=== PATIENT | female | born 1965 | race Caucasian/White ===

== ENCOUNTER → 2021-07-20 10:01 | Outpatient (CLI) | payer OTHER, SELFPAY ==
[2021-07-22 14:14] LABS: Free T4, Direct Thyroxine 1.04 ng/dL (0.78-2.19)
[2021-07-22 14:28] LABS: Thyroid Stimulating Hormone 1.57 uIU/mL (0.47-4.68)
== END ==
PROVIDERS: PCP Family Medicine; Visit Provider Obstetrics & Gynecology
DX: N95.1 Menopausal and female climacteric states (principal)
CPT/HCPCS: 82306; 84439; 84443

== ENCOUNTER → 2021-09-07 09:23 | Outpatient (CLI) | payer OTHER, SELFPAY ==
[2021-09-07 21:15] LABS: COVID19 - ORCAS (NP or Nasal) Negative (Negative)
== END ==
PROVIDERS: PCP Family Medicine; Visit Provider Physician Assistant Medical
DX: Z20.822 Contact with and (suspected) exposure to COVID-19 (principal)
CPT/HCPCS: U0003

== ENCOUNTER 2023-03-30 18:49 | Emergency (ER) | payer OTHER, SELFPAY ==
[2023-03-30] VITALS (12 sets, daily range): BP systolic 160–202; BP diastolic 76–100; PULSE 71–94; RESP 17–27; TEMP 36.7; O2SAT 96–100; BMI 29.8
--- NOTE | 2023-03-30 19:08 | DI.RAD.S_ITS ---
PROCEDURE: XR CHEST 1V INDICATIONS: chest pain TECHNIQUE: One view of the chest was acquired. COMPARISON: None. FINDINGS: Surgical changes and devices: None. Lungs and pleura: Lungs are clear. No pleural effusions or pneumothorax. Mediastinum: Mediastinal contours appear normal. Heart size is normal. Bones and chest wall: No suspicious bony lesions. Overlying soft tissues appear unremarkable. IMPRESSION: Portable chest within normal limits. Dictated by: Scottie Richardson M.D. on 03/30/2023 at 19:17 Approved by: Scottie Richardson M.D. on 03/30/2023 at 19:18
--- NOTE | 2023-03-30 19:09 | DI.US.S_ITS ---
PROCEDURE: US PELVIC COMPLETE INDICATIONS: SEVERE LEFT PELVIC PAIN. HISTORY OF OVARIAN CYSTS TECHNIQUE: Real-time scanning was performed of the pelvic organs, with image documentation. Additional endovaginal scanning was necessary due to incomplete visualization of the adnexal and endometrial structures by transabdominal scanning. COMPARISON: [facility], CR, XR CHEST 1V, 03/30/2023, 19:39. FINDINGS: Overall scan quality is limited by patient pain and inability to tolerate the examination. Uterus: Removed. Apparent calcification can be seen involving the vaginal cuff. Ovaries: The right ovary is not well seen. The left ovary measures 2.6 x 1.2 x 1.5 cm, with a volume of 2.3 cc. Normal appearing venous and arterial waveforms are confirmed to the left ovary. Other: No pathologic free abdominal or pelvic fluid. IMPRESSION: Negative for left ovarian torsion. Status post hysterectomy. Right ovary not well seen. We strive to produce accurate, complete, and clear reports of imaging services. To assist us in improving patient care, this report was composed using standard report templates and voice recognition software. Therefore, it may contain abnormal punctuation, insertions and/or omissions. Occasional wrong-word or sound-alike substitutions may occur. Though we review the report and make efforts to correct it, we do recommend that the report be read carefully in proper context to recognize any text inaccuracies. Dictated by: Scottie Richardson M.D. on 03/30/2023 at 21:03 Approved by: Scottie Richardson M.D. on 03/30/2023 at 21:04
[2023-03-30 19:54] LABS: Add Manual Diff / Slide Review NO; Basophils Absolute Auto 100 /uL (0-100); Basophils Percent Auto 1.1 % (0-2); Eosinophils Absolute Auto 200 /uL (0-450); Eosinophils Percent Auto 1.5 % (2-4); Hematocrit 36.1 % (36-46); Hemoglobin 12.4 g/dL (12.0-16.0); Lymphocytes Absolute Auto 3100 /uL (1100-4500); Lymphocytes Percent Auto 27.5 % (25-40); Mean Corpuscular HGB Conc 34.3 % (30-36); Mean Corpuscular Hemoglobin 31.3 PG (26-34); Mean Corpuscular Volume 91.3 fL (80-100); Monocytes Absolute Auto 600 /uL (0-900); Neutrophils Absolute Auto 7300 /uL (1500-7000); Neutrophils Percent Auto 64.9 % (50-75); Platelet Count 329 X10^3/uL (150-400); Prothrombin Time 11.8 SECONDS (10.1-12.7); Red Blood Cell Count 3.96 X10^6/uL (4.0-5.2); Red Cell Distribution Width 13.5 % (11.6-14.8); White Blood Cell Count 11.2 X10^3/uL (4.5-11.0)
[2023-03-30 19:57] LABS: PTT Partial Thromboplastin Tim 30 SECONDS (26-36)
[2023-03-30 20:00] LABS: Alanine Aminotransferase 79 IU/L (<35); Albumin 4.7 g/dL (3.5-5.0); Albumin Globulin Ratio 1.2 (1.0-2.8); Alkaline Phosphatase 115 U/L (38-126); Aspartate Aminotransferase 49 IU/L (14-36); BUN Creatinine Ratio 17.4 (6-22); Bilirubin Total 0.7 mg/dL (0.2-1.3); Blood Urea Nitrogen 15 mg/dL (7-17); Calcium 9.5 mg/dL (8.4-10.2); Carbon Dioxide 24 mmol/L (22-32); Chloride 100 mmol/L (98-107); Creatine Kinase 61 U/L (30-135); Estimated Glomerular Filt Rate > 60 mL/min (>60); Globulin 3.8 g/dL (1.7-4.1); Glucose 99 mg/dL (70-100); HEMOLYSIS < 15 (0-50); Lipase 97 U/L (23-300); Magnesium 2.1 mg/dL (1.6-2.3); Sodium 136 mmol/L (137-145); Total Protein 8.5 g/dL (6.3-8.2)
[2023-03-30 20:11] LABS: Troponin I < 0.012 ng/mL (0.01-0.034)
[2023-03-30] MEDS: ASPIRIN 81 MG CHEW TAB 324 MG PO (22:05)
--- NOTE | 2023-03-30 22:49 | PC.NURSE ---
Pt reports she used to take losartan 50mg daily, but does not anymore.
--- NOTE | 2023-03-30 23:16 | DI.CT.S_ITS ---
PROCEDURE: CT ABDOMEN PELVIS W CON INDICATIONS: llq pain TECHNIQUE: After the administration of IV contrast, axial sections were acquired from the lung bases to the pubic symphysis. Coronal and sagittal reformats were performed. For radiation dose reduction, the following was used: automated exposure control, adjustment of mA and/or kV according to patient size. COMPARISON: [facility], CR, XR CHEST 1V, 03/30/2023, 19:39. [facility], US, US PELVIC COMPLETE, 03/30/2023, 20:49. FINDINGS: Image quality: Excellent. Lung bases: Unremarkable. Heart: No significant findings. ABDOMEN: Liver: Diffuse fatty liver infiltration is noted. Gallbladder: Unremarkable. Biliary ducts: Unremarkable. Pancreas: Unremarkable. Spleen: Unremarkable. Incidental note is made of an accessory splenule along the anterior inferior of the primary spleen. Adrenal Glands: Unremarkable. Kidneys and Ureters: An abnormally prominent left renal pelvis can be seen, with an abrupt transition to a normal caliber ureter. There is a delayed nephrogram seen on the left. There is a nonobstructing left-sided kidney stone seen, as on series 3, image 41 measuring 5 mm and 800 Hounsfield units. Numerous simple appearing left-sided kidney cysts are seen. Stomach and Bowel: Within the proximal sigmoid colon, there is focal wall thickening with surrounding inflammatory change. Diverticula formation can be seen within this region. The more proximal colon demonstrates diverticular formation, yet without focal inflammatory change. No dilated loops of small bowel are seen. A normal appendix is incidentally noted. No significant gastric abnormality is seen. Peritoneum: No peritoneal abscess is seen. No abnormal intraperitoneal fluid. No free air. Ventral Wall: No hernia. Abdominal Nodes: No retroperitoneal or mesenteric adenopathy by size criteria. Vessels: Aorta and inferior vena cava are normal in size. PELVIS: Pelvic Organs: This patient is status post hysterectomy. No adnexal masses are seen. Bladder: Unremarkable. Pelvic Nodes: No enlarged lymph nodes. Miscellaneous: No inguinal hernias are seen. Bones: Focal L5-S1 degenerative change is seen. Milder degenerative changes are seen elsewhere. IMPRESSION: Sigmoid diverticulitis, without findings of perforation or abscess. When clinically appropriate (following adequate treatment of the patient's current clinical episode) a colonoscopy is recommended for further evaluation for a potential underlying mass (if not already recently done). Apparent left UPJ obstruction. A mild associated delayed nephrogram can be seen. A nonobstructing left-sided kidney stone is seen. Additional findings: Fatty liver infiltration Accessory splenule Simple left renal cysts Normal appendix Hysterectomy Focal L5-S1 degenerative change Dictated by: Scottie Richardson M.D. on 03/30/2023 at 23:07 Approved by: Scottie Richardson M.D. on 03/30/2023 at 23:13
--- NOTE | 2023-03-30 23:19 | ED_ITS ---
HPI - Abdominal Pain General Chief Complaint: Abdominal Pain Stated Complaint: LLQ abd pain, fever, headache, high BP Time Seen by Provider: 03/30/23 22:57 Source: patient Mode of arrival: Ambulatory History of Present Illness HPI narrative: Patient is a 57-year-old healthy female who presents today for left lower quadrant pain. She reports that she had a hysterectomy back in the but has had some left ovarian pain occasionally she says that she has not had in about a year but she started having pain yesterday. She says typically the pain gets better within a day or so but the pain has gotten quite unbearable. She is no changes in bowel habits no nausea or vomiting no fevers or chills or painful frequent urination. This feels very atypical for her ovarian pain. Related Data Home Medications Medication Instructions Recorded Confirmed albuterol sulfate 90 mcg/actuation 2 puff inhalation Q4-6H PRN 05/02/21 07/20/21 aerosol inhaler fluticasone 250 mcg-salmeterol 50 1 inh inhalation BID 05/02/21 07/20/21 mcg/dose blistr powdr for inhalation Previous Rx's Medication Instructions Recorded losartan 50 mg tablet 50 mg PO DAILY #90 tabs 05/03/21 estradiol 0.05 mg/24 hr semiweekly 1 patch transdermal 2XW #8 ea 07/20/21 transdermal patch (Makeda) ciprofloxacin HCl 500 mg tablet 500 mg PO BID #14 tabs 03/31/23 (Cipro) metronidazole 500 mg tablet 500 mg PO Q8H 7 days #21 tabs 03/31/23 Allergies Allergy/AdvReac Type Severity Reaction Status Date / Time acetaminophen [From Percocet] Allergy Severe OXYCODONE-A Verified 03/30/23 19:02 CETAMINOPHE N/TRAMADOL oxycodone [From Percocet] Allergy Severe OXYCODONE-A Verified 03/30/23 19:02 CETAMINOPHE N/TRAMADOL Review of Systems Review of Systems ROS Unobtainable: All systems reviewed & are unremarkable except as noted in HPI and below Patient History Medical History Abnormal Pap smear of cervix (~1986) Allergies (~1993) Anemia (~1976) Asthma (~1993) Fibroids (~1993) Gout (~2003) Heavy menstrual period (~1983) History of 2019 novel coronavirus disease (COVID-19) Mumps (~1968) Ovarian cyst (~1993) Painful menstrual periods (~1983) Symptomatic menopausal or female climacteric states Surgical History Anesthesia Breast tumor (~2003) History of hysterectomy (~1994) Family History Father Cancer Grandmother Cancer Grandfather Cancer Grandmother Alzheimer's disease Social History Smoking Status: Never smoker Smoking Status: Never smoker alcohol intake frequency: 0-2 drinks per day Alcohol type: wine Substance Use Type: does not use Exam Initial Vital Signs Initial Vital Signs: Vital Signs Temperature 98.1 F 03/30/23 18:58 Pulse Rate 94 H 03/30/23 18:58 Respiratory Rate 18 03/30/23 18:58 Blood Pressure 199/100 H 03/30/23 18:58 Pulse Oximetry 100 03/30/23 18:58 Oxygen Delivery Method Room Air 03/30/23 18:58 GENERAL: Alert pleasant 57-year-old female and in no acute distress. HEENT: Head atraumatic,EOMI, pupils reactive, face symmetric, moist mucous membranes CARDIOVASCULAR: Regular rate and rhythm without murmurs, rubs or gallops. RESPIRATORY: Breath sounds equal bilaterally, no wheezes rales or rhonchi. ABDOMEN: Soft, tenderness left lower quadrant no guarding no rebound no upper abdominal pain EXTREMITIES: Normal range of motion, no clubbing or edema. Neurovascularly intact NEUROLOGICAL: Alert and oriented x4. SKIN: Warm, dry, no laceration, no petechiae, no rashes or lesions. Course Orders Ordered: ED Orders 03/30/23 19:08 XR chest 1V Stat EKG-12 Lead Stat 03/30/23 19:09 US pelvic complete Stat 03/30/23 19:30 Complete Blood Count AUTO DIFF Stat Comprehensive Metabolic Panel Stat Lipase Stat Magnesium Stat PTT Partial Thromboplastin Santos Stat Prothrombin Time INR Stat Troponin & CK Cardiac Panel Stat 03/30/23 23:16 CT abdomen pelvis w con Stat Discontinued Medications Aspirin (Aspirin 81 Mg Chew Tab) 324 mg PO NOW ONE Stop: 03/30/23 19:08 Last Admin: 03/30/23 22:05 Dose: 324 mg Documented By: AGNES Ciprofloxacin (Ciprofloxacin 250 Mg Tablet) 500 mg PO NOW ONE Stop: 03/31/23 00:49 Last Admin: 03/31/23 01:02 Dose: 500 mg Documented By: KOMAL Ketorolac Tromethamine (Ketorolac 30 Mg/Ml Vial) 15 mg IV NOW ONE Stop: 03/30/23 23:17 Last Admin: 03/30/23 23:48 Dose: 15 mg Documented By: AGNES Metronidazole (Metronidazole 500 Mg Tablet) 500 mg PO NOW ONE Stop: 03/31/23 00:49 Last Admin: 03/31/23 01:02 Dose: 500 mg Documented By: KOMAL Vital Signs Vital signs: Vital Signs - 8 hr 03/30/23 18:58 03/30/23 19:35 03/30/23 21:18 Temperature 98.1 F Pulse Rate 94 H Respiratory Rate 18 Blood Pressure 199/100 H 190/89 H 193/100 H Pulse Oximetry 100 Oxygen Delivery Method Room Air 03/30/23 21:18 03/30/23 21:30 03/30/23 21:59 Temperature Pulse Rate 89 86 Respiratory Rate Blood Pressure 202/93 H Pulse Oximetry 100 98 Oxygen Delivery Method 03/30/23 21:59 03/30/23 22:00 03/30/23 22:30 Temperature Pulse Rate 91 H 85 86 Respiratory Rate 19 Blood Pressure Pulse Oximetry 98 98 97 Oxygen Delivery Method 03/30/23 22:31 03/30/23 22:31 03/30/23 22:48 Temperature Pulse Rate 92 H Respiratory Rate 23 Blood Pressure 186/81 H 182/87 H Pulse Oximetry 97 Oxygen Delivery Method Room Air 03/30/23 22:48 03/30/23 23:00 03/30/23 23:00 Temperature Pulse Rate 89 85 Respiratory Rate 23 17 Blood Pressure 162/78 H Pulse Oximetry 97 96 Oxygen Delivery Method 03/30/23 23:43 03/30/23 23:48 03/30/23 23:48 Temperature Pulse Rate 85 71 Respiratory Rate 27 H 18 Blood Pressure 160/76 H Pulse Oximetry 96 97 Oxygen Delivery Method 03/31/23 00:00 03/31/23 00:00 03/31/23 00:30 Temperature Pulse Rate 76 Respiratory Rate 17 Blood Pressure 151/65 H 141/66 H Pulse Oximetry 96 Oxygen Delivery Method 03/31/23 00:30 03/31/23 00:59 Temperature Pulse Rate 81 88 Respiratory Rate 17 18 Blood Pressure 133/60 Pulse Oximetry 95 94 Oxygen Delivery Method Room Air MDM - Abdominal Pain Lab Data 03/30/23 19:30 03/30/23 19:30 Labs: Lab Results 03/30/23 03/30/23 03/30/23 Range/Units 19:30 19:30 19:30 WBC 11.2 H (4.5-11.0) X10^3/uL RBC 3.96 L (4.0-5.2) X10^6/uL Hgb 12.4 (12.0-16.0) g/dL Hct 36.1 (36-46) % MCV 91.3 (80-100) fL MCH 31.3 (26-34) PG MCHC 34.3 (30-36) % RDW 13.5 (11.6-14.8) % Plt Count 329 (150-400) X10^3/uL Neut % (Auto) 64.9 (50-75) % Lymph % (Auto) 27.5 (25-40) % Norman % (Auto) 5.0 (3-14) % Eos % (Auto) 1.5 L (2-4) % Baso % (Auto) 1.1 (0-2) % Neut # (Auto) 7300 H (2919-8611) /uL Lymph # (Auto) 3100 (7018-7492) /uL Norman # (Auto) 600 (0-900) /uL Eos # (Auto) 200 (0-450) /uL Baso # (Auto) 100 (0-100) /uL PT 11.8 (10.1-12.7) SECONDS INR 1.0 (0.9-1.3) APTT 30 (26-36) SECONDS Sodium 136 L (137-145) mmol/L Potassium 4.0 (3.4-5.1) mmol/L Chloride 100 (98-107) mmol/L Carbon Dioxide 24 (22-32) mmol/L BUN 15 (7-17) mg/dL Creatinine 0.86 (0.52-1.04) mg/dL Estimated GFR > 60 (>60) mL/min BUN/Creatinine Ratio 17.4 (6-22) Glucose 99 (70-100) mg/dL Calcium 9.5 (8.4-10.2) mg/dL Magnesium 2.1 (1.6-2.3) mg/dL Total Bilirubin 0.7 (0.2-1.3) mg/dL AST 49 H (14-36) IU/L ALT 79 H (<35) IU/L Alkaline Phosphatase 115 (38-126) U/L Total Creatine Kinase 61 (30-135) U/L CK-MB (CK-2) TNP CK-MB (CK-2) Rel Index TNP Troponin I < 0.012 (0.01-0.034) ng/mL Total Protein 8.5 H (6.3-8.2) g/dL Albumin 4.7 (3.5-5.0) g/dL Globulin 3.8 (1.7-4.1) g/dL Albumin/Globulin Ratio 1.2 (1.0-2.8) Lipase 97 (23-300) U/L Point of care testing: Urine Dip Bedside Urine Glucose Negative Bedside Urine Bilirubin - Negative Bedside Urine Ketone - Negative Urine Specific [employer] 1.025 Bedside Urine Occult Blood +/- Bedside Urine pH 6 Bedside Urine Protein - Negative Bedside Urine Urobilinogen - Negative Bedside Urine Nitrite - Negative Bedside Urine Leukocytes - Negative Esterase Imaging Data Chest x-ray: Radiologist's Impression: PROCEDURE:? XR CHEST 1V ? INDICATIONS:? chest pain ? TECHNIQUE:? One view of the chest was acquired.? ? COMPARISON:? None. ? FINDINGS:? ? Surgical changes and devices:? None.? ? Lungs and pleura:? Lungs are clear.? No pleural effusions or pneumothorax.? ? Mediastinum:? Mediastinal contours appear normal.? Heart size is normal.? ? Bones and chest wall:? No suspicious bony lesions.? Overlying soft tissues appear unremarkable.? IMPRESSION:? ? Portable chest within normal limits. ? ? ? Dictated by: Scottie Richardson M.D. on 03/30/2023 at 19:17? 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 US PELVIC COMPLETE ? INDICATIONS:? SEVERE LEFT PELVIC PAIN. HISTORY OF OVARIAN CYSTS ? TECHNIQUE:? Real-time scanning was performed of the pelvic organs, with image documentation.? Additional endovaginal scanning was necessary due to incomplete visualization of the adnexal and endometrial structures by transabdominal scanning.? ? COMPARISON:? [facility], CR, XR CHEST 1V, 03/30/2023, 19:39. ? FINDINGS:? Overall scan quality is limited by patient pain and inability to tolerate the examination. ?? Uterus:? Removed.? Apparent calcification can be seen involving the vaginal cuff. ? Ovaries:? The right ovary is not well seen. ? The left ovary measures 2.6 x 1.2 x 1.5 cm, with a volume of 2.3 cc. Normal appearing venous and arterial waveforms are confirmed to the left ovary. ? ? Other:? No pathologic free abdominal or pelvic fluid. ? ? IMPRESSION:? Negative for left ovarian torsion. ? Status post hysterectomy. ? Right ovary not well seen. ? We strive to produce accurate, complete, and clear reports of imaging services. To assist us in improving patient care, this report was composed using standard report templates and voice recognition software. Therefore, it may contain abnormal punctuation, insertions and/or omissions. Occasional wrong-word or sound-alike substitutions may occur. Though we review the report and make efforts to correct it, we do recommend that the report be read carefully in proper context to recognize any text inaccuracies. ? ? Dictated by: Scottie Richardson M.D. on 03/30/2023 at 21:03? CT scan - abdomen/pelvis: Radiologist's Impression: PROCEDURE:? CT ABDOMEN PELVIS W CON ? INDICATIONS:? llq pain ? TECHNIQUE:? After the administration of IV contrast, axial sections were acquired from the lung bases to the pubic symphysis.? Coronal and sagittal reformats were performed.? For radiation dose reduction, the following was used:? automated exposure control, adjustment of mA and/or kV according to patient size. ? COMPARISON:? [facility], CR, XR CHEST 1V, 03/30/2023, 19:39.? [facility], , US PELVIC COMPLETE, 03/30/2023, 20:49. ? FINDINGS:? Image quality:? Excellent.? ? Lung bases:? Unremarkable.? ? Heart:? No significant findings. ? ? ABDOMEN: Liver:? Diffuse fatty liver infiltration is noted.? Gallbladder:? Unremarkable.? ? Biliary ducts:? Unremarkable.? ? Pancreas:? Unremarkable.? ? Spleen:? Unremarkable.? Incidental note is made of an accessory splenule along the anterior inferior of the primary spleen.? Adrenal Glands:? Unremarkable.? ? Kidneys and Ureters:? An abnormally prominent left renal pelvis can be seen, with an abrupt transition to a normal caliber ureter.? There is a delayed nephrogram seen on the left. There is a nonobstructing left-sided kidney stone seen, as on series 3, image 41 measuring 5 mm and 800 Hounsfield units. Numerous simple appearing left-sided kidney cysts are seen. ? Stomach and Bowel:? Within the proximal sigmoid colon, there is focal wall thickening with surrounding inflammatory change.? Diverticula formation can be seen within this region. The more proximal colon demonstrates diverticular formation, yet without focal inflammatory change. No dilated loops of small bowel are seen. A normal appendix is incidentally noted.? No significant gastric abnormality is seen. Peritoneum:? No peritoneal abscess is seen.? No abnormal intraperitoneal fluid.? No free air.? ? Ventral Wall: ? No hernia.? Abdominal Nodes:? No retroperitoneal or mesenteric adenopathy by size criteria.? Vessels:? Aorta and inferior vena cava are normal in size.? ? PELVIS: Pelvic Organs:? This patient is status post hysterectomy. No adnexal masses are seen.? Bladder:? Unremarkable.? ? Pelvic Nodes: No enlarged lymph nodes.? Miscellaneous: No inguinal hernias are seen. ? ? ? Bones:? Focal L5-S1 degenerative change is seen.? Milder degenerative changes are seen elsewhere.? ? ? IMPRESSION:? ? Sigmoid diverticulitis, without findings of perforation or abscess. ? When clinically appropriate (following adequate treatment of the patient's current clinical episode) a colonoscopy is recommended for further evaluation for a potential underlying mass (if not already recently done). ? Apparent left UPJ obstruction.? A mild associated delayed nephrogram can be seen. ? A nonobstructing left-sided kidney stone is seen. ? Additional findings:? Fatty liver infiltration Accessory splenule Simple left renal cysts Normal appendix Hysterectomy Focal L5-S1 degenerative change ? ? ? Dictated by: Scottie Richardson M.D. on 03/30/2023 at 23:07 ?? ECG Data Interpretation: Normal sinus rhythm rate 92 FL interval 150 QRS 4 QTC 460 T-wave inversion noted in lead 3 only LVH noted MDM Narrative Medical decision making narrative: Patient is a 57-year-old female presenting today with left lower quadrant pain. She does have a history of left ovarian pain but this feels different. Ultrasound is negative for cyst or torsion. Blood work is not show any abnormality or end-organ damage. She is noted to be extremely hypertensive blood pressure 199/100 however improve to 133/60 during her stay without any intervention except for pain control. She was given 1 dose of Toradol. Due to ongoing pain and abnormal pain CT was done which does confirm sigmoid diverticulitis without complication. She is given Cipro and Flagyl in the emergency department. No evidence of sepsis. She has mild leukocytosis of 11.2 but no other clinically significant lab abnormalities. Discharge Plan Departure Patient Disposition: Home Clinical Impression: Diverticulitis Instructions: DI for Diverticulitis Activity Restrictions/Additional Instructions: *You have been diagnosed with diverticulitis *What to do: At this time you may find that you need a low-fiber diet until your intestine heels and then resume a high-fiber diet. *Continue to take medications as directed Cipro 500 mg twice a day for 7 days Flagyl 500 mg 3 times a day for 7 days Motrin 600 mg every 6 hours if needed for [id number] pain Tylenol 1000 mg every hours if needed for [id number] pain *Follow up with your primary care provider in 2-3 days or call [phone] *Return to ER if you should have increasing pain persistent vomiting fever bloody stool or any new, worsening or concerning symptoms Prescriptions: New metronidazole 500 mg tablet 500 mg PO Q8H 7 Days Qty: 21 0RF ciprofloxacin HCl [Cipro] 500 mg tablet 500 mg PO BID Qty: 14 0RF No Action estradiol [Makeda] 0.05 mg/24 hr patch semiweekly 1 patch transdermal 2XW Qty: 8 11RF Rx Instructions: apply 1 patch for 3 days alternating with 1 patch for 4 days each week for 3 wks per 4-wk cycle losartan 50 mg tablet 50 mg PO DAILY Qty: 90 3RF fluticasone propion-salmeterol 250-50 mcg/dose blister with device 1 inh inhalation BID albuterol sulfate 90 mcg/actuation HFA aerosol inhaler 2 puff inhalation Q4-6H PRN Referrals: Theodore Solis MD [Primary Care Provider] - Stand Alone Forms: Patient Portal/API
[2023-03-30] MEDS: KETOROLAC 30 MG/ML VIAL 15 MG IV (23:48)
[2023-03-31] VITALS: BP 151/65; PULSE 76; RESP 17; O2SAT 96
[2023-03-31 00:30] VITALS: BP 141/66; PULSE 81; RESP 17; O2SAT 95
[2023-03-31 00:59] VITALS: BP 133/60; PULSE 88; RESP 18; O2SAT 94
[2023-03-31] MEDS: metroNIDAZOLE 500 MG TABLET PO (01:02)
[2023-03-31] MEDS: CIPROFLOXACIN 250 MG TABLET 500 MG PO (01:02)
== END 2023-03-31 01:11 | disposition home or self-care (01) ==
PROVIDERS: Emergency Provider Emergency Medicine; PCP Family Medicine
DX: K57.92 Diverticulitis of intestine, part unspecified, without perforation or abscess without bleeding (principal); R07.9 Chest pain, unspecified
CPT/HCPCS: 36415; 71045; 74177; 76830; 76856; 80053; 81003; 82550; 83690; 83735; 84484; 85025; 85610; 85730; 93005; 93975; 96374; 99284; J1885; Q9967

== ENCOUNTER → 2023-04-12 12:19 | Outpatient (CLI) | payer OTHER, SELFPAY ==
[2023-05-03 09:44] LABS: Miscellaneous to LabCorp SEE COMMENTS
== END ==
PROVIDERS: PCP Physician Assistant; Visit Provider Nurse Practitioner Adult Health
DX: N89.8 Other specified noninflammatory disorders of vagina (principal)
CPT/HCPCS: 87798

== ENCOUNTER 2023-06-01 09:47 | Emergency (ER) | payer OTHER, SELFPAY ==
[2023-06-01 09:54] VITALS: BP 179/97; PULSE 98; RESP 16; TEMP 36.3; O2SAT 99; BMI 27.4
--- NOTE | 2023-06-01 09:57 | ED_ITS ---
HPI - General Adult General Chief complaint: Urogenital-Female Stated complaint: think UTI or Kidney infection Time Seen by Provider: 06/01/23 09:56 History of Present Illness HPI narrative: 57-year-old female nonsmoke presents with a chief complaint of left flank pain and some burning with urination along with nausea and vomiting. she states that she had a relatively sudden onset left flank and lower quadrant pain that started this morning. She states it radiated into her groin and seemed to intensify without obvious provocation or palliation. She is not dizzy nor weak or lightheaded. She had nausea and vomiting when the pain was severe. She denies any change in bowel habits. Related Data Home Medications Medication Instructions Recorded Confirmed albuterol sulfate 90 mcg/actuation 2 puff inhalation Q4-6H PRN 05/02/21 05/21/23 aerosol inhaler fluticasone 250 mcg-salmeterol 50 1 inh inhalation BID 05/02/21 05/21/23 mcg/dose blistr powdr for inhalation Previous Rx's Medication Instructions Recorded estradiol 0.05 mg/24 hr semiweekly 1 patch transdermal 2XW #8 ea 07/20/21 transdermal patch (Makeda) amoxicillin 875 mg-potassium 1 tab PO Q12H #8 tabs 04/05/23 clavulanate 125 mg tablet losartan 50 mg tablet 50 mg PO DAILY #90 tabs 04/05/23 sodium,potassium,mag sulfates 17.5 See Rx Instructions PO .COMPLEX 04/09/23 gram-3.13 gram-1.6 gram oral soln #354 mL (Suprep Bowel Prep Kit) clotrimazole-betamethasone 1 1 applic topical BID 2 weeks #15 04/12/23 %-0.05 % topical cream grams clobetasol 0.05 % topical cream 1 applic topical BID #30 grams 05/21/23 epinephrine 0.3 mg/0.3 mL 0.3 mg (0.3 mL) IM Q5-15M PRN 05/21/23 injection, auto-injector (EpiPen anaphylaxis #2 ea 2-Madi) prednisone 20 mg tablet 40 mg PO DAILY #2 tabs 05/21/23 ketorolac 10 mg tablet 10 mg PO Q6H PRN pain #30 tabs 06/01/23 ketorolac 10 mg tablet 10 mg PO Q8H PRN pain #30 tabs 06/01/23 tamsulosin 0.4 mg capsule (Flomax) 0.4 mg PO DAILY #30 caps 06/01/23 tamsulosin 0.4 mg capsule (Flomax) 0.4 mg PO DAILY #30 caps 06/01/23 Allergies Allergy/AdvReac Type Severity Reaction Status Date / Time oxycodone [From Percocet] Allergy Severe OXYCODONE-A Verified 06/01/23 09:58 CETAMINOPHE N/TRAMADOL ciprofloxacin [From Cipro] AdvReac Severe Muscle Pain Verified 06/01/23 09:58 ondansetron [From Zofran] AdvReac Severe Agitated Verified 06/01/23 09:58 Review of Systems Review of Systems Narrative: GENERAL: Denies chills, fatigue, malaise, fever, sweats. HEENT: Denies sinus pain, ear pain, sore throat, difficulty swallowing, dizziness. RESPIRATORY: Denies dyspnea, cough, wheezing, hemoptysis, sputum. CARDIOVASCULAR: Denies chest pain, palpitations, orthopnea, edema, GASTROINTESTINAL: see HPI : See HPI MUSCULOSKELETAL: denies weakness, joint pain, or bony pain SKIN: Denies rash, skin lesions, or other NEUROLOGIC: Denies weakness, headache, numbness, change in speech, confusion, seizures, incoordination. PSYCHIATRIC: No concerning psychosocial issues. 12 point review of systems is negative except for those stated above Patient History Medical History Abnormal Pap smear of cervix (~1986) Allergies (~1993) Anemia (~1976) Asthma (~1993) Chronic cough Cough COVID-19 virus detected Fibroids (~1993) Foreign body in skin of finger (~10/17/19) Gout (~2003) Heavy menstrual period (~1983) History of 2019 novel coronavirus disease (COVID-19) Mumps (~1968) Ovarian cyst (~1993) Painful menstrual periods (~1983) Single episode of elevated blood pressure SOB (shortness of breath) Symptomatic menopausal or female climacteric states Urinary urgency Surgical History Anesthesia Breast tumor (~2003) History of hysterectomy (~1994) Family History Father Cancer Grandmother Cancer Grandfather Cancer Grandmother Alzheimer's disease Social History Smoking Status: Never smoker Smoking Status: Never smoker alcohol intake frequency: 0-2 drinks per day Alcohol type: wine Substance Use Type: does not use Exam Narrative Exam Narrative: GENERAL: [57] year old patient appears stated age. Well-developed patient, in mild distress. HEAD: Atraumatic. Normocephalic. EYES: Pupils equal round and reactive. Extraocular motions intact. No scleral icterus. No injection or drainage. ENT: Nose without bleeding, purulent drainage. Throat without erythema, tonsillar hypertrophy or exudate. Airway patent. NECK: Trachea midline. Non tender CARDIOVASCULAR: Regular rate and rhythm without murmurs, gallops, or rubs. RESPIRATORY: Clear to auscultation. Breath sounds equal bilaterally. No wheezes, rales, or rhonchi. GASTROINTESTINAL: Abdomen soft, non-tender, nondistended. EXTREMITIES: No edema or joint tenderness. BACK: Nontender without deformity or crepitance. left CVA tenderness NEURO: AOx3. SKIN: No rash or erythema of visible areas Initial Vital Signs Initial Vital Signs: Vital Signs Temperature 97.4 F L 06/01/23 09:54 Pulse Rate 98 H 06/01/23 09:54 Respiratory Rate 16 06/01/23 09:54 Blood Pressure 179/97 H 06/01/23 09:54 Pulse Oximetry 99 06/01/23 09:54 Oxygen Delivery Method Room Air 06/01/23 09:54 Course Orders Ordered: ED Orders 06/01/23 10:00 Urine Microscopic Stat 06/01/23 10:07 CT kidney ureter bladder (KUB) Stat 06/01/23 10:34 Complete Blood Count AUTO DIFF Stat Comprehensive Metabolic Panel Stat Lipase Stat Discontinued Medications Sodium Chloride (Normal Saline 0.9%) 1,000 mls @ 1,000 mls/hr IV BOLUS ONE Stop: 06/01/23 11:06 Last Infusion: 06/01/23 12:41 Dose: 0 mls/hr Documented By: Admin: 06/01/23 10:49 Dose: 1,000 mls/hr Documented By: NR Ketorolac Tromethamine (Ketorolac 30 Mg/Ml Vial) 15 mg IV NOW ONE Stop: 06/01/23 10:08 Last Admin: 06/01/23 10:49 Dose: 15 mg Documented By: NR Vital Signs Vital signs: Vital Signs - 8 hr 06/01/23 09:54 06/01/23 13:02 Temperature 97.4 F L Pulse Rate 98 H 75 Respiratory Rate 16 16 Blood Pressure 179/97 H 181/83 H Pulse Oximetry 99 98 Oxygen Delivery Method Room Air Room Air Medical Decision Making Lab Data 06/01/23 10:34 06/01/23 10:34 Labs: Lab Results 06/01/23 06/01/23 06/01/23 Range/Units 10:00 10:34 10:34 WBC 10.9 (4.5-11.0) X10^3/uL RBC 3.91 L (4.0-5.2) X10^6/uL Hgb 12.1 (12.0-16.0) g/dL Hct 35.5 L (36-46) % MCV 91.0 (80-100) fL MCH 31.0 (26-34) PG MCHC 34.1 (30-36) % RDW 13.3 (11.6-14.8) % Plt Count 329 (150-400) X10^3/uL Neut % (Auto) 72.1 (50-75) % Lymph % (Auto) 19.9 L (25-40) % [place] % (Auto) 7.0 (3-14) % Eos % (Auto) 0.5 L (2-4) % Baso % (Auto) 0.5 (0-2) % Neut # (Auto) 7800 H (9929-7677) /uL Lymph # (Auto) 2200 (3028-7319) /uL [place] # (Auto) 800 (0-900) /uL Eos # (Auto) 100 (0-450) /uL Baso # (Auto) 100 (0-100) /uL Sodium 138 (137-145) mmol/L Potassium 4.4 (3.4-5.1) mmol/L Chloride 100 (98-107) mmol/L Carbon Dioxide 23 (22-32) mmol/L BUN 16 (7-17) mg/dL Creatinine 0.83 (0.52-1.04) mg/dL Estimated GFR > 60 (>60) mL/min BUN/Creatinine Ratio 19.3 (6-22) Glucose 108 H (70-100) mg/dL Calcium 9.2 (8.4-10.2) mg/dL Total Bilirubin 0.4 (0.2-1.3) mg/dL AST 48 H (14-36) IU/L ALT 79 H (<35) IU/L Alkaline Phosphatase 90 (38-126) U/L Total Protein 8.5 H (6.3-8.2) g/dL Albumin 4.9 (3.5-5.0) g/dL Globulin 3.6 (1.7-4.1) g/dL Albumin/Globulin Ratio 1.4 (1.0-2.8) Lipase 100 (23-300) U/L Urine RBC 30-100/hpf H (0-5/HPF) Urine WBC 1-5/hpf (0-5/HPF) Ur Squamous Epith Cells 5-10 /hpf H (0-5/HPF) Urine Bacteria Many (>30) H (None) Ur Culture Indicated? Cult not indicated Urine Dip Bedside Urine Glucose Negative Bedside Urine Bilirubin - Negative Bedside Urine Ketone - Negative Urine Specific [place] 1.020 Bedside Urine Occult Blood +++ Bedside Urine pH 6 Bedside Urine Protein +/- 15 Bedside Urine Urobilinogen - Negative Bedside Urine Nitrite - Negative Bedside Urine Leukocytes - Negative Esterase Point of care testing: Urine Dip Bedside Urine Glucose Negative Bedside Urine Bilirubin - Negative Bedside Urine Ketone - Negative Urine Specific [place] 1.020 Bedside Urine Occult Blood +++ Bedside Urine pH 6 Bedside Urine Protein +/- 15 Bedside Urine Urobilinogen - Negative Bedside Urine Nitrite - Negative Bedside Urine Leukocytes - Negative Esterase [facility] Narrative Medical decision making narrative: [57] year old patient presents with left flank pain, colicky in nature without obvious provocation or palliation Multiple etiologies for patient's symptoms considered including, but not limited to: [ kidney stone versus pyelonephritis versus bowel obstruction versus other] Prior Charts reviewed in our EMR Primary Historian: patient Labs reviewed and interpreted by myself: urine with blood but no sign of infection, serum labs unremarkable specifically no change in renal function Imaging reviewed: CT KUB demonstrates a 6 mm obstructing stone at the left UPJ with associated hydro Patient's symptoms improved over duration of stay with above-stated therapies. pain well controlled, no evidence of infection, no fever, no UTI, no renal involvement Findings and discharge diagnosis discussed with patient/family followed by verbalization of understanding Return precautions discussed with patient/family whom verbalize understanding of diagnosis and plan Discharge Plan Departure Patient Disposition: Home Clinical Impression: Kidney calculi Instructions: DI for Kidney Stones Activity Restrictions/Additional Instructions: *You have been diagnosed with [left-sided kidney stone without signs of infection] *What to do: *Please continue to take your regular medications as directed. [ x] New medication prescriptions sent to your pharmacy: [ [facility] [place]] [ ] New medication written as a paper prescription [ ] No new medications given *Please follow up with your primary care provider in 2-3 days, call for an appointment. Let them know you were seen in the Emergency Department and that we ask that you be seen in follow up. We will electronically transmit a record of today's note if your PCP is in our system * as we discussed I have included contact information for the on-call urologist, Dr. Cedillo. Please call the office, let them know you were seen in the emergency department and we would like you seen in follow-up. I will elec tronically transmitted a copy of today's note to his office *Return to Emergency Department if you should have any new, worsening or concerning symptoms, such as [fever greater than 101 F, shaking chills, worsening pain, persistent vomiting or other bothersome symptoms] Prescriptions: New tamsulosin [Flomax] 0.4 mg capsule 0.4 mg PO DAILY Qty: 30 0RF ketorolac 10 mg tablet 10 mg PO Q8H PRN (Reason: pain) Qty: 30 0RF ketorolac 10 mg tablet 10 mg PO Q6H PRN (Reason: pain) Qty: 30 0RF tamsulosin [Flomax] 0.4 mg capsule 0.4 mg PO DAILY Qty: 30 0RF No Action estradiol [Makeda] 0.05 mg/24 hr patch semiweekly 1 patch transdermal 2XW Qty: 8 11RF Rx Instructions: apply 1 patch for 3 days alternating with 1 patch for 4 days each week for 3 wks per 4-wk cycle sodium,potassium,mag sulfates [Suprep Bowel Prep Kit] 17.5-3.13-1.6 gram recon soln See Rx Instructions PO .COMPLEX Qty: 354 0RF Rx Instructions: take as directed by Physician prednisone 20 mg tablet 40 mg PO DAILY Qty: 2 0RF Rx Instructions: for SUNDAY epinephrine [EpiPen 2-Madi] 0.3 mg/0.3 mL auto-injector 0.3 mg IM Q5-15M PRN (Reason: anaphylaxis) Qty: 2 1RF Rx Instructions: to insect sting. do not exceed 3 doses per episode. CALL 911 clobetasol 0.05 % cream 1 applic topical BID Qty: 30 0RF Rx Instructions: to rash for 5 days. (never use for more than 2 weeks). fluticasone propion-salmeterol 250-50 mcg/dose blister with device 1 inh inhalation BID albuterol sulfate 90 mcg/actuation HFA aerosol inhaler 2 puff inhalation Q4-6H PRN amoxicillin-pot clavulanate 875-125 mg tablet 1 tab PO Q12H Qty: 8 0RF losartan 50 mg tablet 50 mg PO DAILY Qty: 90 3RF clotrimazole-betamethasone 1-0.05 % cream 1 applic topical BID 14 Days Qty: 15 1RF Referrals: Lindsay Watson PA-C [Primary Care Provider] - Nathanael Cedillo MD [Physician] - Stand Alone Forms: Patient Portal/API
--- NOTE | 2023-06-01 10:07 | DI.CT.S_ITS ---
PROCEDURE: CT KIDNEY URETER BLADDER (KUB) INDICATIONS: flank pain, hematuria TECHNIQUE: Axial sections were acquired from the lung bases to the pubic symphysis. Coronal and sagittal reformats were performed. For radiation dose reduction, the following was used: automated exposure control, adjustment of mA and/or kV according to patient size. COMPARISON: [facility], CT, CT ABDOMEN PELVIS W CON, 03/30/2023, 23:23. [facility], US, US RENAL COMPLETE, 04/30/2023, 10:40. FINDINGS: Image quality: Excellent. Lung bases: Unremarkable. Heart: No significant findings. URINARY: Right Kidney: No stones or hydronephrosis. Right Ureter: No hydroureter. Left Kidney: There is severe left-sided hydronephrosis seen. Left-sided perinephric fat stranding can be seen. No nonobstructing left-sided kidney stones are seen. Moderate density left renal cysts are seen. Left Ureter: Moderate to severe left-sided hydroureter is seen. Within the distal left ureter at the ureterovesicular junction, there is an obstructing stone seen, as on series 4, image 35 that measures 6 mm and 670 Hounsfield units. Bladder: Normal wall thickness. No stones. ABDOMEN: Liver: Regional fatty liver infiltration can be seen. Gallbladder: Unremarkable. Biliary ducts: Unremarkable. Pancreas: Unremarkable. Spleen: Unremarkable. Incidental note is made of an accessory splenule along the anterior aspect of the primary spleen. Adrenal Glands: Unremarkable. Stomach and Bowel: Stomach, small bowel loops, and colon are unremarkable. A normal appendix is noted. Colonic diverticulosis is seen, without findings of active diverticulitis. Peritoneum: No abnormal intraperitoneal fluid. No free air. Ventral Wall: No hernia. Abdominal Nodes: No enlarged retroperitoneal or mesenteric lymph nodes. Vessels: Aorta and inferior vena cava are normal in size. PELVIS: Pelvic Organs: This patient is status post hysterectomy. No adnexal masses are seen. Pelvic Nodes: Unremarkable. Miscellaneous: No inguinal hernias are seen. Bones: Focal L5-S1 degenerative change is seen. Milder degenerative changes are seen elsewhere. IMPRESSION: 6 mm obstructing stone seen at the left ureterovesicular junction, with associated left-sided hydroureter and hydronephrosis, with perinephric fat stranding. No nonobstructing kidney stones are seen. Additional findings: Accessory splenule Simple left renal cysts Focal L5-S1 degenerative change Diverticulosis, with resolved diverticulitis. Hysterectomy Normal appendix Dictated by: Scottie Richardson M.D. on 06/01/2023 at 9:32 Approved by: Scottie Richardson M.D. on 06/01/2023 at 9:37
[2023-06-01 10:17] LABS: Bacteria Urine Many (>30); Culture Indicated Urine Cult Not Indicated; RBC Urine 30-100/HPF (0-5/HPF); Squamous Epithelial Cell Urine 5-10 /HPF (0-5/HPF); WBC Urine 1-5/HPF (0-5/HPF)
[2023-06-01 10:41] LABS: Add Manual Diff / Slide Review NO; Basophils Absolute Auto 100 /uL (0-100); Basophils Percent Auto 0.5 % (0-2); Eosinophils Absolute Auto 100 /uL (0-450); Eosinophils Percent Auto 0.5 % (2-4); Hematocrit 35.5 % (36-46); Hemoglobin 12.1 g/dL (12.0-16.0); Lymphocytes Absolute Auto 2200 /uL (1100-4500); Lymphocytes Percent Auto 19.9 % (25-40); Mean Corpuscular HGB Conc 34.1 % (30-36); Monocytes Absolute Auto 800 /uL (0-900); Neutrophils Absolute Auto 7800 /uL (1500-7000); Neutrophils Percent Auto 72.1 % (50-75); Platelet Count 329 X10^3/uL (150-400); Red Blood Cell Count 3.91 X10^6/uL (4.0-5.2); Red Cell Distribution Width 13.3 % (11.6-14.8); White Blood Cell Count 10.9 X10^3/uL (4.5-11.0)
[2023-06-01] MEDS: SODIUM CHLORIDE 0.9% 1,000 ML 1000 ML IV (10:49)
[2023-06-01] MEDS: KETOROLAC 30 MG/ML VIAL 15 MG IV (10:49)
[2023-06-01 10:55] LABS: Alanine Aminotransferase 79 IU/L (<35); Albumin 4.9 g/dL (3.5-5.0); Albumin Globulin Ratio 1.4 (1.0-2.8); Alkaline Phosphatase 90 U/L (38-126); Aspartate Aminotransferase 48 IU/L (14-36); BUN Creatinine Ratio 19.3 (6-22); Bilirubin Total 0.4 mg/dL (0.2-1.3); Blood Urea Nitrogen 16 mg/dL (7-17); Calcium 9.2 mg/dL (8.4-10.2); Carbon Dioxide 23 mmol/L (22-32); Chloride 100 mmol/L (98-107); Estimated Glomerular Filt Rate > 60 mL/min (>60); Globulin 3.6 g/dL (1.7-4.1); Glucose 108 mg/dL (70-100); HEMOLYSIS < 15 (0-50); Lipase 100 U/L (23-300); Potassium 4.4 mmol/L (3.4-5.1); Sodium 138 mmol/L (137-145); Total Protein 8.5 g/dL (6.3-8.2)
[2023-06-01 13:02] VITALS: BP 181/83; PULSE 75; RESP 16; O2SAT 98
== END 2023-06-01 13:04 | disposition home or self-care (01) ==
PROVIDERS: Emergency Provider Emergency Medicine; PCP Physician Assistant
DX: N20.0 Calculus of kidney (principal); R10.32 Left lower quadrant pain; R31.9 Hematuria, unspecified
CPT/HCPCS: 36415; 51798; 74176; 80053; 81003; 81015; 83690; 85025; 96361; 96374; 99284; J1885

== ENCOUNTER → 2023-06-13 08:09 | Outpatient (CLI) | payer OTHER, SELFPAY | PROVIDERS: PCP Physician Assistant; Visit Provider Physician Assistant Medical | DX: N13.5 Crossing vessel and stricture of ureter without hydronephrosis (principal); N20.0 Calculus of kidney | CPT/HCPCS: 87086 ==

== ENCOUNTER → 2023-06-30 11:35 | Outpatient (CLI) | payer OTHER, SELFPAY ==
--- NOTE | 2023-06-30 11:39 | DI.MRI.S_ITS ---
PROCEDURE: MR KNEE RT WO CON INDICATIONS: effusion/r/o internal derangement TECHNIQUE: Noncontrast sagittal PD fast spin echo and T2 fast spin echo with fat saturation, sagittal 3-D FLASH with fat saturation; coronal T1 spin echo and PD fast spin echo with fat saturation, and axial PD fast spin echo with fat saturation through the knee. COMPARISON: [facility] ([facility]), CR, XR KNEE RT 3V, 06/13/2023, 8:42. FINDINGS: Image quality: Good Menisci: Medial: Horizontal and oblique tear involving the body and posterior horn. Lateral: Intact. Meniscopopliteal fascicles maintained. Cruciate ligaments: Intact Medial structures: MCL: [id number] periligamentous edema Pes anserine tendons: Intact Semimembranosus: Mild insertional tendinopathy Lateral structures: LCL: Intact Biceps femoris: Intact IT band: Intact Popliteus tendon: Intact Anterior structures: Extensor mechanism: Intact Fat pads: Moderate Hoffa's fat pad edema Medial retinaculum: Intact. Trochlea: Slight lateral tilt of the patella. Overall TT TG distance within normal limits Bone and joint: Bones: No fracture, dislocation, or suspicious edema Cartilage: Median ridge patellar cartilage full-thickness defect with mild subchondral edema. Moderate heterogeneity and pink-nd-bnnzcogo heterogeneity and thinning of the medial and lateral compartments respectively. Joint space: Large effusion with air significant debris and evidence of synovitis, with synovial thickening as well. York's cyst: Small York's cyst. Soft tissues: There are part articular ganglions. IMPRESSION: Large joint effusion with synovial thickening and large debris and internal filling defects, consider sampling for further analysis. This is greater than expected for the degree of internal derangement. Horizontal oblique tear involving the medial meniscal body and posterior horn. Suspected MCL proximal sprain. Moderate Hoffa's fat pad edema. 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 Jpeg-[id number] chondromalacia elsewhere. Small York's cyst. Dictated by: Dwaine Smith M.D. on 07/02/2023 at 10:10 Approved by: Dwaine Smith M.D. on 07/02/2023 at 10:16
== END ==
PROVIDERS: PCP Physician Assistant Medical; Referring Provider Physician Assistant Medical; Visit Provider Physician Assistant Medical
DX: S83.241A Other tear of medial meniscus, current injury, right knee, initial encounter (principal); M25.461 Effusion, right knee; M94.261 Chondromalacia, right knee; M71.21 Synovial cyst of popliteal space [Baker], right knee
CPT/HCPCS: 73721

== ENCOUNTER 2023-07-05 08:12 | Day surgery (SDC) | payer OTHER, SELFPAY ==
--- NOTE | 2023-07-05 | PATH_ITS ---
[facility] Accession Number: [id number] No. of containers..01 Tissue . 01 Material submitted: . rectum - RECTAL POLYP . 01 Diagnosis: Rectal Polyp, Polypectomy: Tubular adenoma. Where well-oriented, the cauterized polypectomy margins appear negative for dysplasia. MRV 07/09/2023 1741 Local . 01 Electronically signed: . Clover Gardiner MD, Pathologist NPI- [id number] . 01 Gross description: . RECTAL POLYP: Received in formalin is 1 fragment(s) of morton, soft tissue measuring 1.1 x 0.8 x 0.6 cm which is trisected and submitted entirely in 1 cassette(s) 1. /AAY 07/06/2023 0150 Local . 01 Pathologist provided ICD-10: D12.8 . 01 CPT . 750536 Specimen Comment: A courtesy copy of this report has been sent to [phone] Performed at: 01 [facility] [address] [place] [address] [address], [place], [place] [id number] MD Julio Guevara MD Phone: [phone]
[2023-07-05 08:25] VITALS: BP 148/89; PULSE 100; RESP 16; TEMP 37.1; O2SAT 96; BMI 29.2
[2023-07-05] MEDS: LACTATED RINGERS 1,000 ML 42 ML IV (08:38)
--- NOTE | 2023-07-05 10:02 | PM.HP.1 ---
History of Present Illness History of Present Illness Date Patient Seen: 07/05/23 Time Patient Seen: 10:02 Chief complaint: Colonoscopy Narrative: Lisa is a 58-year-old woman who is here for colonoscopy. She has never had 1 before. She had a recent attack of diverticulitis and was in the ER but it has resolved now. No known family history of colon cancer. [facility] Medical History (Updated 06/20/23 @ 13:13 by Darío Sky MD) Abnormal Pap smear of cervix (~1986) Allergies (~1993) Anemia (~1976) Asthma (~1993) Chronic cough Cough COVID-19 virus detected Fibroids (~1993) Foreign body in skin of finger (~10/17/19) Gout (~2003) Heavy menstrual period (~1983) History of 2019 novel coronavirus disease (COVID-19) Left ureteral calculus Mumps (~1968) Ovarian cyst (~1993) Painful menstrual periods (~1983) Single episode of elevated blood pressure SOB (shortness of breath) Symptomatic menopausal or female climacteric states Urinary urgency Surgical History Anesthesia Breast tumor (~2003) History of hysterectomy (~1994) Family History Father Cancer Grandmother Cancer Grandfather Cancer Grandmother Alzheimer's disease Social History household members: spouse Smoking Status: Never smoker Meds Home Medications and Allergies Home Medications Medication Instructions Recorded Confirmed Type albuterol sulfate 90 mcg/actuation 2 puff inhalation Q4-6H PRN 05/02/21 07/05/23 History aerosol inhaler Shortness Of Breath losartan 50 mg tablet 50 mg PO DAILY #90 tabs 04/05/23 07/05/23 Rx epinephrine 0.3 mg/0.3 mL 0.3 mg (0.3 mL) IM Q5-15M PRN 05/21/23 07/05/23 Rx injection, auto-injector (EpiPen anaphylaxis #2 ea 2-Madi) Allergies Allergy/AdvReac Type Severity Reaction Status Date / Time oxycodone [From Percocet] Allergy Severe OXYCODONE-A Verified 07/05/23 08:20 CETAMINOPHE N/TRAMADOL ciprofloxacin [From Cipro] AdvReac Severe Muscle Pain Verified 07/05/23 08:20 ondansetron [From Zofran] AdvReac Severe Agitated Verified 07/05/23 08:20 Exam Vital Signs (past 8 hours): - 07/05/23 08:25 Temperature 98.7 F Pulse Rate 100 H Respiratory Rate 16 Blood Pressure 148/89 H Pulse Oximetry 96 Oxygen Delivery Method Room Air Oxygen Delivery Method Room Air Const General: No acute distress Resp Effort & Inspection: normal respiratory effort Assessment & Plan Assessment and plan (1) Colon cancer screening: Status: Acute Plan We reviewed the risks and benefits of colonoscopy for colon cancer screening and she would like to proceed.
--- NOTE | 2023-07-05 10:33 | P.OP.COLON_ITS ---
Operative Date/Time/Diagnoses Date of procedure: 07/05/23 Time of procedure: 10:33 Pre-op diagnosis: Colon cancer screening Post-op diagnosis: same Procedure & Clinicians Study performed: Colonoscopy Same procedure as scheduled: Yes Surgeon: Cleveland Johnson Procedure Notes Procedure in detail: Surgeon: Cleveland Johnson MD Anesthesia: Velma Mcgovern DO Procedure: The patient was brought to the endoscopy suite, placed in left lateral decubitus position. The patient was connected to monitoring devices. A time-out was performed. Sedation was administered. Once the patient was adequately sedated, a digital rectal exam was performed and was normal. The scope was then inserted and advanced to the cecum where the appendiceal orifice was identified and photographed. The scope was then slowly withdrawn over greater than 6 minutes. The mucosa was thoroughly inspected. There were some s cattered diverticula right colon and sigmoid colon. There was a 1 cm polyp in the distal rectum removed with a hot snare. The scope was retroflexed in the rectum. No other abnormalities were seen The scope was straightened and removed. The patient was awakened and brought to recovery. Scope withdrawal time: 11 minutes Sedation time: 15 minutes EBL: 1 mL Findings: Scattered diverticulosis and a 1 cm rectal polyp Post-procedure Disposition: PACU
[2023-07-05 10:35] VITALS: BP 111/72; PULSE 100; RESP 22; TEMP 36.2; O2SAT 96
[2023-07-05 10:40] VITALS: BP 94/61; PULSE 89; RESP 16; O2SAT 96
[2023-07-05 10:45] VITALS: BP 108/59; PULSE 76; RESP 17; O2SAT 97
[2023-07-05 10:56] VITALS: BP 150/58; PULSE 85; RESP 17; TEMP 36.1; O2SAT 97
== END 2023-07-05 10:57 | disposition home or self-care (01) ==
PROVIDERS: PCP Physician Assistant Medical; Referring Provider Surgery; Visit Provider Surgery
PROC: 0DJD8ZZ Inspection of Lower Intestinal Tract, Via Natural or Artificial Opening Endoscopic (ICD-10-PCS; CPT 45378; principal; 2023-07-05 09:15)
DX: Z12.11 Encounter for screening for malignant neoplasm of colon (principal); K57.30 Diverticulosis of large intestine without perforation or abscess without bleeding; D12.8 Benign neoplasm of rectum
CPT/HCPCS: 45385; J2704